=== PATIENT | female | born 2000 | race Hispanic/Latino ===

== ENCOUNTER 2023-04-11 11:08 | Inpatient (IN) | payer OTHER ==
[2023-04-13 05:34] VITALS: BMI 31.2
[2023-04-13] MEDS ORDERED: Ondansetron PF 4 MG/2 ML Vial IVP PRN ×4 (05:50→22:10)
[2023-04-13] MEDS ORDERED: Lidocaine 1% (PF) 30 ML VIAL SC PRN (05:50)
[2023-04-13] MEDS ORDERED: Promethazine HCl 25 MG/ML VIAL IM PRN ×4 (05:50→22:10)
[2023-04-13] MEDS ORDERED: Methylergonovine 0.2 MG/ML VIAL IM PRN (05:50)
[2023-04-13] MEDS ORDERED: Acetaminophen 500 MG TAB PO PRN (05:50)
[2023-04-13] MEDS ORDERED: Misoprostol 200 MCG TAB PR PRN (05:50)
[2023-04-13] MEDS ORDERED: Lactated Ringer's 1,000 ML IV SCH (05:50)
[2023-04-13] MEDS ORDERED: Ibuprofen 800 MG TAB PO PRN (05:50)
[2023-04-13] MEDS ORDERED: NS w/ Oxytocin 30 units 500 ML IV SCH ×3 (05:50)
[2023-04-13] MEDS ORDERED: Carboprost 250 MCG/ML AMP IM PRN (05:50)
[2023-04-13] MEDS ORDERED: HYDROcodone/Acetaminophen 5/325 mg Tablet PO PRN (05:50)
[2023-04-13] MEDS ORDERED: fentaNYL 50 mcg/mL 1 mL Vial SLOW IVP PRN (05:50)
[2023-04-13] MEDS ORDERED: Diphenoxylate HCl/Atropine Tablet PO PRN (05:50)
[2023-04-13] MEDS ORDERED: hydrALAZINE 20 MG/ML VIAL SLOW IVP PRN (05:50)
[2023-04-13] MEDS ORDERED: Tranexamic Acid 1,000 MG/10 ML VIAL IVP PRN (05:50)
[2023-04-13] MEDS: Misoprostol 100 MCG TAB VAG SCH ×2 (06:22→10:05)
[2023-04-13 06:30] LABS: Hematocrit 36.2 % (34.9-44.5); Hemoglobin 12.3 g/dL (12.0-15.5); Mean Corpuscular Hemoglobin 27.3 pg (27.0-33.0); Mean Corpuscular Volume 80.4 fl (81.6-98.3); Mean Platelet Volume 11.4 fl (7.4-10.4); Platelet Count 223 10x3/uL (150-450); White Blood Cell (WBC) Count 8.2 10x3/uL (3.5-10.5)
[2023-04-13 07:28] LABS: Syphilis Antibody Nonreactive (Nonreactive); Syphilis Antibody Index 0.03 S/CO (<1.00 Non-Reactive)
[2023-04-13 07:29] LABS: HBSAg Index 0.19 S/CO (0-0.99); Hep B Surf Ag - L&D Non-Reactive S/CO (NonReactive)
[2023-04-13] MEDS ORDERED: fentaNYL/Ropivacaine Epidural 100 ML ONE (16:12)
[2023-04-13] MEDS ORDERED: Lactated Ringer's 500 ML IV PRN ×2 (20:24→20:26)
[2023-04-13] MEDS ORDERED: Naloxone HCl 0.4 mg/ml Vial IVP PRN ×6 (20:24→22:10)
[2023-04-13] MEDS ORDERED: Moisturizing Cream (Eucerin) 113 GM JAR TOP PRN ×3 (20:24→22:10)
[2023-04-13] MEDS ORDERED: diphenhydrAMINE 50 MG/ML VIAL IVP PRN ×3 (20:24→22:10)
[2023-04-13] MEDS ORDERED: ePHEDrine Sulfate 50 MG/10 ML VIAL SLOW IVP PRN ×2 (20:24→20:26)
[2023-04-13] MEDS ORDERED: Acetaminophen 325 MG TAB PO PRN ×2 (20:24→20:26)
[2023-04-13] MEDS ORDERED: Communication Order-Pharmacy FS SCH ×3 (20:30→22:15)
[2023-04-13] MEDS ORDERED: fentaNYL 2 mcg/Ropivacaine 0.2% Epidural 100 ML CADD EPIDURAL SCH (20:30)
[2023-04-13] MEDS ORDERED: CEFAZOLIN 2 GM VIAL ONE (21:00)
[2023-04-13] MEDS ORDERED: Azithromycin 500 MG VIAL ONE (21:00)
[2023-04-13] MEDS ORDERED: Oxytocin 10 UNITS/ML VIAL ONE (21:07)
[2023-04-13] MEDS ORDERED: Ondansetron PF 4 MG/2 ML Vial ONE (21:07)
[2023-04-13] MEDS ORDERED: ePHEDrine Sulfate 50 MG/10 ML VIAL ONE (21:07)
[2023-04-13] MEDS ORDERED: Morphine PF 10 MG/10 ML VIAL ONE (21:07)
[2023-04-13] MEDS ORDERED: Ketorolac Tromethamine 30 MG/ML VIAL ONE (21:07)
[2023-04-13] MEDS ORDERED: Lidocaine 2% MPF 10 ML AMP (For Epidural Use) ONE (21:08)
[2023-04-13] MEDS ORDERED: PHENYLEPHRINE-NS 100 MCG/ML 10 ML SYRINGE ONE (21:08)
[2023-04-13] MEDS ORDERED: Meperidine HCl/PF 25 MG/ML VIAL SLOW IVP PRN (22:10)
[2023-04-13] MEDS ORDERED: Ketorolac Tromethamine 30 MG/ML VIAL IVP PRN (22:10)
[2023-04-13] MEDS ORDERED: Fentanyl 50 MCG/1 ML VIAL SLOW IVP PRN (22:10)
[2023-04-13] MEDS ORDERED: Promethazine HCl 25 MG SUPP PR PRN (22:10)
[2023-04-13] MEDS ORDERED: L&D-HYDROmorphone 0.5 MG/0.5 ML SYRINGE SLOW IVP PRN (22:10)
[2023-04-13] MEDS ORDERED: Naloxone HCl 0.4 mg/ml Vial IV PRN (22:10)
[2023-04-13] MEDS ORDERED: Ondansetron HCl/PF 4 MG/2 ML Vial IVP PRN (22:10)
[2023-04-13] MEDS ORDERED: Ketorolac Tromethamine 30 MG/ML VIAL IVP SCH (22:15)
[2023-04-13] MEDS ORDERED: fentaNYL 50 mcg/mL 1 mL Vial ONE (23:12)
[2023-04-14] MEDS ORDERED: Ondansetron PF 4 MG/2 ML Vial IVP PRN (00:29)
[2023-04-14] MEDS ORDERED: Promethazine HCl 25 MG/ML VIAL IM PRN (00:29)
[2023-04-14] MEDS ORDERED: Lanolin Ointment 7 GM TUBE TOP PRN (00:29)
[2023-04-14] MEDS ORDERED: Bisacodyl 10 MG SUPP PR PRN (00:29)
[2023-04-14] MEDS ORDERED: hydrALAZINE 20 MG/ML VIAL SLOW IVP PRN (00:29)
[2023-04-14] MEDS ORDERED: diphenhydrAMINE 25 MG CAP PO PRN (00:29)
[2023-04-14] MEDS ORDERED: Boostrix 0.5 ML (Tdap) VIAL (>/=7 yrs of age) IM ONE (00:29)
[2023-04-14] MEDS: Misoprostol 100 MCG TAB VAG SCH ×2 (00:43→00:44)
[2023-04-14] MEDS ORDERED: Fentanyl 50 MCG/1 ML VIAL SLOW IVP PRN (01:19)
[2023-04-14] MEDS ORDERED: L&D-HYDROmorphone 0.5 MG/0.5 ML SYRINGE SLOW IVP PRN (01:19)
[2023-04-14] MEDS ORDERED: HYDROmorphone 0.5 MG/0.5 ML SYRINGE SLOW IVP SCH (01:30)
[2023-04-14] MEDS: Simethicone Chewable 80 MG TAB PO PRN ×4 (03:09→18:42)
[2023-04-14 04:28] LABS: Hemoglobin 10.3 g/dL (12.0-15.5); Mean Corpuscular HGB CONC 33.2 g/dL (32.0-36.0); Mean Corpuscular Hemoglobin 27.4 pg (27.0-33.0); Mean Corpuscular Volume 82.4 fl (81.6-98.3); Platelet Count 172 10x3/uL (150-450); RBC Distribution Width 14.8 % (11.5-14.5); Red Blood Cell (RBC) Count 3.76 10x6/uL (3.90-5.03); White Blood Cell (WBC) Count 11.2 10x3/uL (3.5-10.5)
[2023-04-14] MEDS: Ketorolac Tromethamine 30 MG/ML VIAL IVP SCH ×3 (05:19→17:00)
[2023-04-14] MEDS ORDERED: ePHEDrine Sulfate 50 MG/10 ML VIAL ONE (09:00)
[2023-04-14] MEDS ORDERED: Bupivacaine 0.25% HCL 30 ML VIAL ONE (09:00)
[2023-04-14] MEDS: Ferrous Sulfate 325 MG TAB PO SCH ×2 (09:18→20:46)
[2023-04-14] MEDS: Docusate 100 MG CAP PO SCH ×2 (09:32→21:53)
[2023-04-14] MEDS: Prenatal Vitamin 1 TAB PO SCH (09:32)
[2023-04-14] MEDS: HYDROcodone/Acetaminophen 5/325 mg Tablet PO PRN ×4 (09:34→21:53)
[2023-04-14] MEDS ORDERED: Meperidine HCl/PF 25 MG/ML VIAL IM PRN (10:15)
[2023-04-15] MEDS: HYDROcodone/Acetaminophen 5/325 mg Tablet PO PRN ×4 (01:08→15:18)
[2023-04-15] MEDS: Simethicone Chewable 80 MG TAB PO PRN (01:08)
[2023-04-15] MEDS: Ibuprofen 800 MG TAB PO SCH ×3 (06:22→21:43)
[2023-04-15] MEDS: Docusate 100 MG CAP PO SCH ×2 (09:05→21:43)
[2023-04-15] MEDS: Prenatal Vitamin 1 TAB PO SCH (09:05)
[2023-04-15] MEDS: Ferrous Sulfate 325 MG TAB PO SCH ×2 (09:08→21:43)
[2023-04-16] MEDS: Ibuprofen 800 MG TAB PO SCH (06:25)
[2023-04-16] MEDS: Docusate 100 MG CAP PO SCH (08:33)
[2023-04-16] MEDS: Prenatal Vitamin 1 TAB PO SCH (08:34)
[2023-04-16] MEDS: HYDROcodone/Acetaminophen 5/325 mg Tablet PO PRN (08:43)
[2023-04-16 09:00] VITALS: BP 107/66; TEMP 98.2
== END 2023-04-16 14:00 | disposition home or self-care (01) | DRG 788 ==
LOC: CSHLD 04-13 04:39 → CSHPP 04-14 00:22
PROVIDERS: ADMIT Family Medicine; ATTEND Family Medicine
PROC: 10D00Z1 Extraction of Products of Conception, Low, Open Approach (ICD-10-PCS; principal; 2023-04-13)
PROC: 3E0E7GC Introduction of Other Therapeutic Substance into Products of Conception, Via Natural or Artificial Opening (ICD-10-PCS; 2023-04-13)
PROC: 3E0P7VZ Introduction of Hormone into Female Reproductive, Via Natural or Artificial Opening (ICD-10-PCS; 2023-04-13)
DX: O48.0 Post-term pregnancy (principal); O76 Abnormality in fetal heart rate and rhythm complicating labor and delivery; Z3A.40 40 weeks gestation of pregnancy; Z37.0 Single live birth
CPT/HCPCS: 36415; 51702; 85027; 86780; 86850; 86900; 86901; 87340; J1170; J1200; J1885; J2274; J2405; J2590; J3010; S0020